=== PATIENT | female | born 1985 | race Caucasian/White ===

== ENCOUNTER 2025-02-15 06:17 | Day surgery (SDC) | payer OTHER, SELFPAY ==
[2025-02-07 09:13] LABS: Hematocrit 39.7 % (37.0-47.0); Hemoglobin 12.8 g/dL (12.0-16.0); Mean Corp Hgb Conc. 32.2 g/dL (33.0-37.0); Mean Corpuscular Hgb 28.2 pg (27.0-31.0); Mean Corpuscular Volume 87.4 fL (81.0-99.0); Platelet Count 292 10^3/uL (130-400); Red Blood Cell Count 4.54 10^6/uL (4.20-5.40); Red Cell Dist. Width 13.4 % (11.5-14.5); White Blood Cell Count 8.1 10^3/uL (4.8-10.8)
[2025-02-07 09:14] LABS: APTT 27.3 Sec (23.4-35.0); INR 0.95
[2025-02-07 09:32] LABS: ALT (SGPT) 25 U/L (0-35); AST (SGOT) 24 U/L (14-36); Albumin 4.6 g/dl (3.5-5.0); Alkaline Phosphatase 67 U/L (38-126); Blood Urea Nitrogen 14 mg/dl (7-17); Calcium 10.9 mg/dl (8.4-10.2); Carbon Dioxide 25 mmol/L (22-30); Chloride 102 mmol/L (98-107); Glucose 98 mg/dl (70-99); Sodium 139 mmol/L (135-145); Total Bilirubin 0.6 mg/dl (0.2-1.3); Total Protein 7.2 g/dl (6.3-8.2); eGFR > 60.00
[2025-02-07 14:13] VITALS: BMI 38.6
[2025-02-15] VITALS (10 sets, daily range): BP systolic 99–149; BP diastolic 42–99; BMI 38.6
[2025-02-15] MEDS: NEURONTIN 300 MG PO (09:12)
[2025-02-15] MEDS: HEPARIN 5000 UNITS SC (09:12)
[2025-02-15] MEDS: TYLENOL 1000 MG PO (09:12)
[2025-02-15] MEDS: NORMOSOL-R/PLASMALYTE-A 1000 IV (09:31)
[2025-02-15] MEDS: TRANSDERM-SCOP 1 PATCH TRANSDERM (09:31)
[2025-02-15 10:45] LABS: Turbo PTH 223.3 pg/ml (13.6-85.8)
--- NOTE | 2025-02-15 11:21 | OR.RPT ---
Operative Report
Operative Report
Date of Operation: February 15, 2025
Preoperative Diagnosis: �Parathyroid hyperparathyroidism - E210
Postoperative Diagnosis: Same
Surgeon: Ranulfo Gamez M.D.
Operation: Minimally Invasive Right Inferior Parathyroidectomy - 76669
Anesthesia: GET
Estimated Blood Loss: 3 cc
Drains: None
Specimen: Right Inferior neck nodule, rule out parathyroid adenoma
Complications: �None
Procedure:
The patient was taken to the operating room and placed in the usual supine position. After adequate general endotracheal anesthesia was established, the patient's neck was extended, prepped, and draped in the typical sterile fashion. A 4 cm
transcervical incision was made two fingerbreadths above the sternal notch. The skin incision was made with the #15 blade, and this was taken through the skin into the subcutaneous tissue. The underlying platysma muscle was divided, and subplatysmal
flaps were created superiorly to the thyroid cartilage and inferiorly to the sternal notch. Strap muscles were identified and at the midline.
Attention was turned to the patient's right side of the neck. The right thyroid lobe was mobilized medially. During this process, the right recurrent laryngeal nerve was identified and preserved throughout the surgery. The right lower neck nodule
was identified and noted to be enlarged, excised, and sent to the pathology department, which showed a hypercellular parathyroid gland. The intraoperative PTH levels normalized.
After obtaining adequate hemostasis, the strap muscles were reapproximated with #3-0 Vicryl in a running fashion. The platysma muscle was reapproximated with #3-0 Vicryl in an interrupted fashion, and the skin was approximated with #4-0 Monocryl in
a running subcuticular fashion. The Steri-Strips and sterile dressings were placed. The patient tolerated the procedure well. The final instrument, needle, and sponge counts were correct. The patient was extubated and transferred to the PACU.
[2025-02-15 11:42] LABS: Turbo PTH 31.4 pg/ml (13.6-85.8)
[2025-02-15] MEDS: ROXICODONE 5 MG PO (13:00)
== END 2025-02-15 13:30 | disposition home or self-care (01) ==
LOC: SDS 06:17
PROVIDERS: ATTENDING PHYSICIAN Surgery; FAMILY PHYSICIAN Nurse Practitioner Family
DX: D35.1 Benign neoplasm of parathyroid gland (principal); E21.0 Primary hyperparathyroidism
CPT/HCPCS: 60500; 88305; 88332; 36415; 80053; 83970; 85027; 85610; 85730; 88331; 93005